=== PATIENT | male | born 1965 | race Caucasian/White ===

== ENCOUNTER → 2020-10-21 13:38 | Outpatient (BNVA) | payer OTHER, SELFPAY | PROVIDERS: Visit Provider Specialist | DX: M19.012 Primary osteoarthritis, left shoulder (principal); M77.8 Other enthesopathies, not elsewhere classified | CPT/HCPCS: 73030 ==

== ENCOUNTER 2020-10-28 08:11 | Outpatient (RCR) | payer OTHER, SELFPAY | END 2020-10-29 23:59 | disposition home or self-care (01) | LOC: SPT 08:11 | PROVIDERS: PCP Nurse Practitioner; Referring Provider Specialist; Visit Provider Specialist | DX: M25.512 Pain in left shoulder (principal) | CPT/HCPCS: 97110; 97161 ==

== ENCOUNTER 2020-10-30 06:00 | Outpatient (RCR) | payer OTHER, SELFPAY | END 2020-11-29 23:59 | disposition home or self-care (01) | LOC: SPT 06:00 | PROVIDERS: PCP Nurse Practitioner; Referring Provider Specialist; Visit Provider Specialist | DX: M25.512 Pain in left shoulder (principal) | CPT/HCPCS: 97110 ==

== ENCOUNTER 2020-11-30 06:00 | Outpatient (RCR) | payer OTHER, SELFPAY | END 2020-12-27 23:59 | disposition home or self-care (01) | LOC: SPT 06:00 | PROVIDERS: PCP Nurse Practitioner; Referring Provider Specialist; Visit Provider Specialist | DX: M25.512 Pain in left shoulder (principal) | CPT/HCPCS: 97110 ==

== ENCOUNTER 2020-12-28 06:00 | Outpatient (RCR) | payer OTHER, SELFPAY | END 2021-01-05 15:53 | disposition home or self-care (01) | LOC: SPT 06:00 | PROVIDERS: PCP Nurse Practitioner; Referring Provider Specialist; Visit Provider Specialist | DX: M25.519 Pain in unspecified shoulder (principal) | CPT/HCPCS: 97110 ==

== ENCOUNTER → 2022-07-14 09:03 | Outpatient (BNVA) | payer OTHER, SELFPAY | PROVIDERS: PCP Nurse Practitioner; Visit Provider Student in an Organized Health Care Education/Training Program | DX: B20 Human immunodeficiency virus [HIV] disease (principal) | CPT/HCPCS: 36415; 80053; 81001; 85025; 86355; 86357; 86359; 86360; 86480; 86592; 86705; 86706; 86709; 86803; 87340; 87491; 87536; 87591; 99203; 99205 ==

== ENCOUNTER → 2022-07-15 10:41 | Outpatient (BNVA) | payer OTHER, SELFPAY | PROVIDERS: PCP Nurse Practitioner; Visit Provider Student in an Organized Health Care Education/Training Program | DX: B20 Human immunodeficiency virus [HIV] disease (principal) | CPT/HCPCS: 87536 ==

== ENCOUNTER → 2023-05-04 15:27 | Outpatient (BNVA) | payer OTHER, SELFPAY | PROVIDERS: PCP Nurse Practitioner; Visit Provider Student in an Organized Health Care Education/Training Program | DX: B20 Human immunodeficiency virus [HIV] disease (principal) | CPT/HCPCS: 36415; 80053; 81001; 85025; 86360; 86480; 86705; 86706; 86709; 86803; 87340; 87536; 99214 ==

== ENCOUNTER → 2023-09-25 13:01 | Outpatient (BNVA) | payer OTHER, SELFPAY | PROVIDERS: PCP Nurse Practitioner; Referring Provider Nurse Practitioner; Visit Provider Surgery | DX: Z12.11 Encounter for screening for malignant neoplasm of colon (principal) | CPT/HCPCS: 99203 ==

== ENCOUNTER 2023-10-17 08:07 | Outpatient (CLI) | payer OTHER, SELFPAY ==
--- NOTE | 2023-10-17 08:14 | CT_ITS ---
WS: [id number] CT CHEST TECHNIQUE: Contrast enhanced CT of the chest with coronal and sagittal reformatted images. CLINICAL INFORMATION: ABNORMAL CXR COMPARISON: CT chest 01/25/2022 DLP: 473.[address] scans at [facility] use at least one of these dose optimization techniques: automated e xposure control; mA and/or kV adjustment per patient size (includes targeted exams where dose is matc hed to clinical indication); or iterative reconstruction. FINDINGS: Normal caliber thoracic aorta. Proximal main pulmonary arteries are normal. No mediastinal or hilar l ymphadenopathy. No axillary lymphadenopathy. Diffuse heterogeneous enhancing lesion RIGHT hepatic lobe likely caverno us hemangioma partially visualized but appears stable.Partially visualized suspected hemangioma measu res 5 to 6 cm. This could be further evaluated with contrast-enhanced CT abdomen pelvis. Lobulated cyst in the LEFT hepatic lobe appears stable measuring 2.5 cm. Normal GE junction. Adrenal glands are normal. Small area of parenchymal scarring in the RIGHT upper lobe suprahilar region is unchanged compared to previous. Mild chronic emphysematous changes. No new suspicious pulmonary parenchymal opacities. Slight bibasilar atelectasis. IMPRESSION: 1. Stable intraparenchymal scarring in the RIGHT upper lobe suprahilar region unchanged per to previ ous. 2. No new suspicious pulm parenchymal opacities. 3. No mediastinal or hilar lymphadenopathy. 4. Partially visualized large lobulated enhancing lesion in hepatic lobe likely cavernous hemangioma but only partially included. Recommend further evaluation with contrast-enhanced CT abdomen pelvis w [facility] multiphasic liver protocol 5. Lobulated hepatic cyst LEFT hepatic lobe measures 2.5 cm appears stable. 6. No other suspicious findings.
[2023-10-17] MEDS: iohexol 350 mg/mL 500 mL Btl (per mL) IV (08:33)
== END 2023-10-17 08:08 | disposition home or self-care (01) ==
LOC: RAD 08:08
PROVIDERS: PCP Nurse Practitioner; Visit Provider Nurse Practitioner
DX: R91.8 Other nonspecific abnormal finding of lung field (principal); J98.4 Other disorders of lung
CPT/HCPCS: 71260; Q9967

== ENCOUNTER 2023-11-21 08:10 | Outpatient (CLI) | payer OTHER, SELFPAY ==
--- NOTE | 2023-11-21 08:13 | CT_ITS ---
WS: [id number] CT ABDOMEN WITH AND WITHOUT CONTRAST HISTORY: ELEVATED LFT'S/ABNORMAL U/S Multiphase phase 3 mm axial imaging performed to the abdomen. Oral contrast has not been provided. Co lee ann and sagittal reformats are submitted. All CT scans at [facility] use at least one of th sagnita dose optimization techniques: automated exposure control; mA and/or kV adjustment per patient siz e (includes targeted exams where dose is matched to clinical indication); or iterative reconstruction . IV CONTRAST: Omnipaque 350; 100 mL IV. Oral contrast: No DLP: 2108.62 mGy.cm COMPARISON: 10/17/2023 Lower thorax: Lung bases are clear. Heart is normal size. Small hiatal hernia. Liver/biliary system: Multiphase imaging has been performed of the liver as requested as follow-up fr om a chest CT dated 10/17/2023. Liver is slightly enlarged. There are multiple masses within the live r. The largest mass demonstrates globular enhancement on the arterial imaging and continues to fill i n on the more delayed imaging. This mass does not completely fill-in as there is a central scar. This mass measures approximately 10.2 x 6.8 cm and is most consistent with a giant cavernous hemangioma. No acute blood products are identified. Additional smaller similarly enhancing masses are identified. At the RIGHT diaphragmatic surface is an additional smaller hemangioma measuring 1.2 x 1.3 cm. Near the falciform ligament is a focal area of enhancement measuring 0.7 x 0.8 cm. There is also a slightl y lobulated simple cyst measuring 2.2 x 2.7 cm which abuts the falciform ligament and extends to the LEFT. No bile duct dilatation. Gallbladder: Normal. No gallstones or wall thickening. No pericholecystic fluid. Pancreas: Normal size pancreas and pancreatic duct. No adjacent inflammation. Spleen: Normal size spleen. No mass or infarct. Adrenal glands: Normal. Right kidney: Normal. Left kidney: Normal. Aorta: Normal. Lymphadenopathy: None. Free fluid: None. GI tract: Stomach is not distended. No small bowel obstruction. The visualized hepatic and splenic fl exure and transverse colon demonstrates fecal retention. There are few diverticula in the descending colon without diverticulitis. No obstructive pattern. Abdominal wall: Fat containing umbilical hernia. Visualized osseous structures: Unremarkable. IMPRESSION: 1. Giant cavernous hemangioma RIGHT hepatic lobe measures 10.2 x 6.8 cm. 2. There are additional scattered smaller hemangiomas within the liver and also a benign lobulated c yst. 3. Mild constipation in the visualized colon and a few diverticula in the descending colon.
[2023-11-21] MEDS: iohexol 350 mg/mL 500 mL Btl (per mL) IV (08:50)
== END 2023-11-21 08:11 | disposition home or self-care (01) ==
LOC: RAD 08:10
PROVIDERS: PCP Nurse Practitioner; Visit Provider Nurse Practitioner
DX: R79.89 Other specified abnormal findings of blood chemistry (principal); D18.03 Hemangioma of intra-abdominal structures; R93.5 Abnormal findings on diagnostic imaging of other abdominal regions, including retroperitoneum; K76.89 Other specified diseases of liver; K59.00 Constipation, unspecified; K57.30 Diverticulosis of large intestine without perforation or abscess without bleeding
CPT/HCPCS: 74170; Q9967

== ENCOUNTER 2023-11-30 08:46 | Day surgery (SDC) | payer OTHER, SELFPAY ==
[2023-11-30 09:08] VITALS: BP 142/98; PULSE 74; RESP 16; TEMP 36.3; O2SAT 95; BMI 31.3
[2023-11-30] MEDS: sodium chloride 0.9% 1,000 ML 30 ML IV (09:16)
--- NOTE | 2023-11-30 09:16 | P.ANESASSM_ITS ---
Pre-Anesthetic Assessment Height/Weight: Height 1.7 m Weight 90.718 kg Temp Pulse Resp BP Pulse Ox O2 Del Method 97.4 F L 74 16 142/98 95 Room Air 11/30/23 09:08 11/30/23 09:08 11/30/23 09:08 11/30/23 09:08 11/30/23 09:08 11/30/23 09:08 Operation Date: 11/30/23 10:10 Proposed Procedures p 21547 colon G0121 screening colon A risk Z12.11(Not Applicable) - Hai Cramer MD Familial anesthetic complications: Pneumothorax 27 years ago during ankle surgery Was Beta Demetri taken within 24 hours: N/A Was Clonidine taken within 24 hours: N/A Last intake: Intake Last Liquid Date 11/29/23 Last Liquid Time 23:30 Last Solid Date 11/28/23 Last Solid Time 15:00 Social Alcohol (occasional) and Tobacco (occasional) Exam alert, oriented x 3, clear to auscultation bilaterally and regular rate & rhythm Airway Mallampati: Class II Dentition: partials Pulmonary hx repeat pnuemonia CV/HEM Arrythmia (mild) GI Gastroesophageal Reflux Disease Metabolic HIV positive Anesthetic Plan ASA status: 3 Anesthesia: MAC Risk of > 500 ml blood loss (7ml/kg in children): No Medications/Allergies Home Medications Medication Instructions Recorded Confirmed Last Taken Type abacavir 600 mg-dolutegravir 50 1 tab PO DAILY 10/21/20 11/30/23 11/30/23 History mg-lamivudine 300 mg tablet (Triumeq) cyclobenzaprine 10 mg tablet 10 mg PO TID 10/21/20 11/28/23 11/26/23 History meloxicam 15 mg tablet 15 mg PO DAILY #30 tabs 10/21/20 11/28/23 11/25/23 Rx propranolol 10 mg tablet 10 mg PO BID 10/21/20 11/30/23 11/30/23 History temazepam 15 mg capsule mg PO 10/21/20 09/25/23 11/20/23 History naproxen 250 mg tablet 250 mg PO BID PRN Pain 07/14/22 11/28/23 1 Month Ago History ~10/28/23 omeprazole 40 mg capsule,delayed 40 mg PO DAILY 07/14/22 11/28/23 Unknown History release ergocalciferol (vitamin D2) 1,250 1,250 mcg PO .1 a week 09/25/23 11/28/23 11/26/23 History mcg (50,000 unit) capsule magnesium citrate (Citrate of 300 ml PO DAILY PRN constipation 11/03/23 11/28/23 Unknown Rx Magnesia oral) #600 mL Allergies Allergy/AdvReac Type Severity Reaction Status Date / Time penicillin G Allergy anaphlactic Verified 09/25/23 13:12 shock nevirapine Allergy rash Uncoded 09/25/23 13:12 [facility] Anesthesia Medical History HIV (human immunodeficiency virus infection) Family History (Updated 09/25/23 @ 13:[address]) Mother Hyperglycemia Father Hypertension Social History (Updated 09/25/23 @ 13:[address]) Smoking and tobacco/nicotine status: current every day tobacco/nicotine user smokeless tobacco Smokeless tobacco user: chewing tobacco Alcohol intake: current Alcohol intake frequency: holidays/special occasions only Data Anesthesia Cardiac Studies: No Data to Display
--- NOTE | 2023-11-30 09:25 | P.ANESASSM_ITS ---
Pre-Anesthetic Assessment Height/Weight: Height 1.7 m Weight 90.718 kg Temp Pulse Resp BP Pulse Ox O2 Del Method 97.4 F L 74 16 142/98 95 Room Air 11/30/23 09:08 11/30/23 09:08 11/30/23 09:08 11/30/23 09:08 11/30/23 09:08 11/30/23 09:08 Preop Diagnosis: screening Operation Date: 11/30/23 10:10 Proposed Procedures p 47130 colon G0121 screening colon A risk Z12.11(Not Applicable) - Hai Cramer MD Was Beta Demetri taken within 24 hours: Yes Was Clonidine taken within 24 hours: N/A Last intake: Intake Last Liquid Date 11/29/23 Last Liquid Time 23:30 Last Solid Date 11/28/23 Last Solid Time 15:00 Last Intake: 00:01 Social No alcohol and No tobacco Exam alert, oriented x 3, clear to auscultation bilaterally and regular rate & rhythm Airway Submandibular: within normal limits Cervical ROM: within normal limits Mallampati: Class II History/ROS No significant history except as noted and No significant complaints Pulmonary None reported CV/HEM Arrythmia hx of unknown arrythmia takes propranolol None reported Hepatic liver lesions GI None reported Metabolic None reported Musc/skel None reported Neuropsych None reported Anesthetic Plan ASA status: 2 Anesthesia: MAC Risk of > 500 ml blood loss (7ml/kg in children): Yes, adequate IV access and fluids planned Medications/Allergies Home Medications Medication Instructions Recorded Confirmed Last Taken Type abacavir 600 mg-dolutegravir 50 1 tab PO DAILY 10/21/20 11/30/23 11/30/23 Histor y mg-lamivudine 300 mg tablet (Triumeq) cyclobenzaprine 10 mg tablet 10 mg PO TID 10/21/20 11/28/23 11/26/23 History meloxicam 15 mg tablet 15 mg PO DAILY #30 tabs 10/21/20 11/28/23 11/25/23 Rx propranolol 10 mg tablet 10 mg PO BID 10/21/20 11/30/23 11/30/23 History temazepam 15 mg capsule mg PO 10/21/20 09/25/23 11/20/23 History naproxen 250 mg tablet 250 mg PO BID PRN Pain 07/14/22 11/28/23 1 Month Ago History ~10/28/23 omeprazole 40 mg capsule,delayed 40 mg PO DAILY 07/14/22 11/28/23 Unknown History release ergocalciferol (vitamin D2) 1,250 1,250 mcg PO .1 a week 09/25/23 11/28/23 11/26/23 History mcg (50,000 unit) capsule magnesium citrate (Citrate of 300 ml PO DAILY PRN constipation 11/03/23 11/28/23 Unknown Rx Magnesia oral) #600 mL Allergies Allergy/AdvReac Type Severity Reaction Status Date / Time penicillin G Allergy anaphlactic Verified 09/25/23 13:12 shock nevirapine Allergy rash Uncoded 09/25/23 13:12 Current Medications Generic Name Dose Route Start Last Admin Trade Name Freq PRN Reason Stop Dose Admin Sodium Chloride 1,000 mls @ 30 mls/hr 11/30/23 09:00 11/30/23 09:16 Sodium Chloride 0.9% IV 30 mls/hr .Q24H MICKIE Administration PFSH Anesthesia Medical History HIV (human immunodeficiency virus infection) Family History (Updated 09/25/23 @ 13:[address]) Mother Hyperglycemia Father Hypertension Social History (Updated 09/25/23 @ 13:[address]) Smoking and tobacco/nicotine status: current every day tobacco/nicotine user smokeless tobacco Smokeless tobacco user: chewing tobacco Alcohol intake: current Alcohol intake frequency: holidays/special occasions only Data Anesthesia Cardiac Studies: No Data to Display
--- NOTE | 2023-11-30 09:26 | W.PM.OPSFHP ---
Same Day Surgery H&P Indication for Procedure/HPI DATE OF PROCEDURE: November 30, 2023 CHIEF COMPLAINT/INDICATIONFOR SURGICAL PROCEDURE: need for screening colonscopy PREOP DIAGNOSIS: need for screening colonoscopy PLANNED PROCEDURE: Operation Date: 11/30/23 10:10 Proposed Procedures p 85772 colon G0121 screening colon A risk Z12.11(Not Applicable) - Hai Cramer MD Medications/Allergies* Home Medications Medication Instructions Recorded Confirmed Type abacavir 600 mg-dolutegravir 50 1 tab PO DAILY 10/21/20 11/30/23 History mg-lamivudine 300 mg tablet (Triumeq) cyclobenzaprine 10 mg tablet 10 mg PO TID 10/21/20 11/28/23 History propranolol 10 mg tablet 10 mg PO BID 10/21/20 11/30/23 History temazepam 15 mg capsule mg PO 10/21/20 09/25/23 History naproxen 250 mg tablet 250 mg PO BID PRN Pain 07/14/22 11/28/23 History omeprazole 40 mg capsule,delayed 40 mg PO DAILY 07/14/22 11/28/23 History release ergocalciferol (vitamin D2) 1,250 1,250 mcg PO .1 a week 09/25/23 11/28/23 History mcg (50,000 unit) capsule Allergies/Adverse Reactions Allergy/AdvReac Type Severity Reaction Status Date / Time penicillin G Allergy anaphlactic Verified 09/25/23 13:12 shock nevirapine Allergy rash Uncoded 09/25/23 13:12 Current Medications: Generic Name Dose Route Start Last Admin Trade Name Freq PRN Reason Stop Dose Admin Sodium Chloride 1,000 mls @ 30 mls/hr 11/30/23 09:00 11/30/23 09:16 Sodium Chloride 0.9% IV 30 mls/hr .Q24H MICKIE Administration Pertinent History/Comorbid Conditions* Medical History (Updated 07/14/22 @ 10:16 by Sandi Corral MD) HIV (human immunodeficiency virus infection) Family History (Updated 09/25/23 @ 13:21 by RENÉE Bowers) Hyperglycemia Mother Hypertension Father Social History Smoking and tobacco/nicotine status: current every day tobacco/nicotine user smokeless tobacco Smokeless tobacco user: chewing tobacco Alcohol intake: current Alcohol intake frequency: holidays/special occasions only Pertinent Exam Findings alert, oriented x 3 and clear to auscultation bilaterally Recommendations Surgery/Procedure today Coding Level of Care Code Acute Code for Chg Fwd
[2023-11-30 10:27] VITALS: BP 106/78; PULSE 79; RESP 16; TEMP 36.6; O2SAT 92
[2023-11-30 10:37] VITALS: BP 114/82; PULSE 85; RESP 16; O2SAT 94
[2023-11-30 10:46] VITALS: BP 125/92; PULSE 79; RESP 16; O2SAT 94
--- NOTE | 2023-11-30 11:00 | ANE.PACU2 ---
Inpatient post-anesthesia follow up: Airway intact: Yes Vital signs: Temperature 97.9 F Pulse Rate 79 Respiratory Rate 16 Blood Pressure 125/92 Pulse Oximetry 94 Oxygen Delivery Me thod Room Air Oxygen Flow Rate Fraction of Inspir ed Oxygen Hydration adequate: Yes Nausea and vomiting: No Pain level: 1 Mental status: Baseline
== END 2023-11-30 11:02 | disposition home or self-care (01) ==
PROVIDERS: PCP Nurse Practitioner; Visit Provider Surgery
PROC: 0DJD8ZZ Inspection of Lower Intestinal Tract, Via Natural or Artificial Opening Endoscopic (ICD-10-PCS; CPT 45378; principal; 2023-11-30 10:10)
DX: Z12.11 Encounter for screening for malignant neoplasm of colon (principal); F17.220 Nicotine dependence, chewing tobacco, uncomplicated; K21.9 Gastro-esophageal reflux disease without esophagitis; B20 Human immunodeficiency virus [HIV] disease
CPT/HCPCS: 45378; J2704; J7030

== ENCOUNTER → 2024-04-30 08:49 | Outpatient (BNVA) | payer OTHER, SELFPAY | PROVIDERS: PCP Nurse Practitioner; Visit Provider Student in an Organized Health Care Education/Training Program | DX: B20 Human immunodeficiency virus [HIV] disease (principal) | CPT/HCPCS: 36415; 80053; 81001; 85025; 86360; 86480; 86592; 86705; 86706; 86709; 86803; 87340; 87536; 99215 ==